=== PATIENT | female | born 2000 | race Caucasian/White ===

== ENCOUNTER 2024-12-01 10:41 | Emergency (ER) | payer MEDICAID ==
[~2024-12-01] VITALS: Ht 167.6 cm; Wt 76.0 kg
[2024-12-01 10:58] VITALS: O2SAT 100
[2024-12-01 11:32] LABS: BASOPHILS % 0.9 % (0.0-2.0); EOSINOPHILS % 0.9 % (0.0-5.0); HEMATOCRIT. 41.5 % (36.0-48.0); HEMOGLOBIN. 13.5 g/dL (12.0-16.0); LYMPHOCYTES % 28.2 % (20.0-50.0); MEAN CORPUSCULAR HEMOGLOBIN 28.1 pg (28.0-32.0); MEAN CORPUSCULAR HGB CONC 32.4 g/dL (31.0-37.0); MEAN CORPUSCULAR VOLUME 86.8 fL (81.0-99.0); MONOCYTES % 4.1 % (2.0-8.0); NEUTROPHILS % 65.9 % (40.0-76.0); PLATELET 272 x1000/uL (130-400); RED BLOOD CELL COUNT 4.78 mill/uL (4.2-5.4); RED CELL DISTRIBUTION WIDTH 15.5 % (11.6-14.6)
[2024-12-01 11:41] LABS: CLARITY URINE CLEAR (CLEAR); COLOR URINE YELLOW (YELLOW); GLUCOSE URINE NEGATIVE (NEGATIVE); KETONES URINE NEGATIVE (NEGATIVE); LEUKOCYTE ESTERASE URINE TRACE (NEGATIVE); NITRITE URINE NEGATIVE (NEGATIVE); OCCULT BLOOD URINE NEGATIVE (NEGATIVE); PROTEIN URINE NEGATIVE (NEGATIVE); UROBILINOGEN URINE 0.2 E.U./dL (0.2-1.0)
[2024-12-01] MEDS: ONDANSETRON 4MG ODT PO ONE (11:54)
[2024-12-01] MEDS: ACETAMINOPHEN 325MG TABLET PO ONE (11:54)
[2024-12-01] MEDS: KETOROLAC 30MG/ML VIAL IM ONE (11:55)
[2024-12-01 12:06] LABS: CHLORIDE 107 mEq/L (98-107); POTASSIUM 4.1 mEq/L (3.5-5.1); SODIUM 139 mEq/L (136-145)
[2024-12-01 12:07] LABS: CARBON DIOXIDE 26 mEq/L (21-32)
[2024-12-01 12:08] LABS: CALCIUM 9.4 mg/dL (8.7-10.4)
[2024-12-01 12:12] LABS: CREATININE 0.7 mg/dL (0.6-1.0)
[2024-12-01 12:13] LABS: GLUCOSE 98 mg/dL (70-105); UREA NITROGEN BLOOD 11 mg/dL (9-23)
[2024-12-01 12:14] LABS: ALANINE AMINOTRANSFERASE 28 IU/L (10-49); ALBUMIN 4.2 g/dL (3.2-4.8); ASPARTATE AMINOTRANSFERASE 21 IU/L (<34)
[2024-12-01 12:15] LABS: BILIRUBIN TOTAL 0.2 mg/dL (0.1-1.0); PROTEIN TOTAL 7.4 g/dL (6.0-8.3)
[2024-12-01 12:28] LABS: HCG SCREEN NEGATIVE
[2024-12-01 13:09] LABS: BILIRUBIN DIRECT < 0.1 mg/dL (<=3.0)
[2024-12-01 13:43] LABS: SQUAMOUS EPITHELIAL CELL URINE 3+ /lpf (RARE/1+)
[2024-12-01 13:44] LABS: BACTERIA URINE 2+; MUCUS URINE TRACE /lpf (< = 2+)
[2024-12-01 13:45] LABS: RBC URINE NONE SEEN /hpf (0-2); WBC URINE 0-2 /hpf (0-2)
[2024-12-01] MEDS ORDERED: MAG355OR21 MT (14:00)
[2024-12-01] MEDS ORDERED: PROT40 MT (14:00)
[2024-12-01] MEDS: FAMOTIDINE 20MG TABLET PO NR (14:08)
[2024-12-01 14:13] VITALS: BP 104/67; PULSE 83; RESP 18; TEMP 36.8; O2SAT 100
== END 2024-12-01 14:31 | disposition home or self-care (01) ==
LOC: ER 10:41
DX: K29.70 Gastritis, unspecified, without bleeding (principal)
CPT/HCPCS: 99284; 76705; 80076; 80048; 81003; 81025; 84703; 83690; 85025; 36415; Q0162